=== PATIENT | female | born 1995 | race Caucasian/White ===

== ENCOUNTER 2024-12-26 23:52 | Emergency (ER) | payer MEDICAID ==
[~2024-12-26] VITALS: Ht 157.5 cm; Wt 90.9 kg
[2024-12-26 23:53] VITALS: TEMP 98.1
[2024-12-27 01:33] VITALS: BP 110/72; PULSE 89; RESP 16; O2SAT 99
== END 2024-12-27 01:51 | disposition home or self-care (01) ==
LOC: EMS 23:53
DX: S01.01XD Laceration without foreign body of scalp, subsequent encounter (principal); X58.XXXD Exposure to other specified factors, subsequent encounter
CPT/HCPCS: 99282; Z7502

== ENCOUNTER 2025-01-23 17:46 | Emergency (ER) | payer MEDICAID ==
[~2025-01-23] VITALS: Ht 157.5 cm; Wt 90.9 kg
[2025-01-23] MEDS: CEPHALEXIN MONOHYDRATE 500 MG CAPSULE PO ONE (19:23)
[2025-01-23] MEDS: SULFAMETHOX/TRIMETH DS 800-160 MG/TABLET PO ONE (19:23)
[2025-01-23] MEDS: ACETAMINOPHEN 500 MG TABLET PO ONE (19:24)
[2025-01-23] MEDS ORDERED: ACET-3385 PO (19:27)
[2025-01-23] MEDS ORDERED: SULF1TAB94 PO (19:27)
[2025-01-23] MEDS ORDERED: CEPH-558 PO (19:27)
[2025-01-23 20:08] VITALS: BP 119/74; PULSE 89; RESP 18; TEMP 99.1; O2SAT 98
== END 2025-01-23 21:03 | disposition home or self-care (01) ==
LOC: EMS 18:19
DX: L03.114 Cellulitis of left upper limb (principal); M25.422 Effusion, left elbow; W57.XXXA Bitten or stung by nonvenomous insect and other nonvenomous arthropods, initial encounter
CPT/HCPCS: 99284; Z7502; Z7610